=== PATIENT | male | born 1990 | race Caucasian/White ===

== ENCOUNTER 2020-12-01 18:06 | Emergency (ER) | payer MEDICAID ==
[~2020-12-01] VITALS: Ht 175.3 cm; Wt 158.8 kg
[2020-12-01 18:18] VITALS: BP_SYST 141
--- NOTE | 2020-12-01 18:20 | NUR ---
Patient to ER bed 1 to gown for evaluation. Side rails up. Report given to MAU HUGHES.
--- NOTE | 2020-12-01 18:23 | NUR ---
Chris walsh in ED - 12/01/20 at 1938 by ELHAM Pt off to CT with tech on ferny.
--- NOTE | 2020-12-01 18:30 | NUR ---
PT ARRIVES VIA ACLS FOR ALOC AFTER BINGING ON ETOH FOR 7 DAYS. PER THE PT'S FAMILY THE PT HAS BEEN DRINKING BEER AND HARD LIQUOR. PER EMS ON ARRIVAL PT WAS COMBATIVE. HE RECEIVED A DOSE OF VERSED ON ROUTE. IV SITE 18G TO THE LEFT FOOT
--- NOTE | 2020-12-01 18:32 | NUR ---
DANDY Mitchell at bedside examining patient.
--- NOTE | 2020-12-01 18:48 | NUR ---
Lab at bedside.
[2020-12-01] MEDS: NACL 0.9% 1,000 ML IV ONE (18:49)
--- NOTE | 2020-12-01 18:49 | NUR ---
COVID SWAB COLLECTED AND SENT TO LAB
--- NOTE | 2020-12-01 18:50 | NUR ---
X-ray at bedside.
--- NOTE | 2020-12-01 18:55 | NUR ---
Pt off to CT via ferny accompanied by
--- NOTE | 2020-12-01 19:00 | NUR ---
Pt back from CT
[2020-12-01 19:06] LABS: BASOPHILS # (AUTO) 0.1 K/uL (0.0-0.2); BASOPHILS % (AUTO) 1.4 % (0.0-2.0); EOSINOPHILS % (AUTO) 0.1 % (0.0-4.0); HEMATOCRIT 42.9 % (36-54); HEMOGLOBIN 15.1 g/dL (14.0-18.0); LYMPHOCYTES # (AUTO) 2.3 K/uL (1.0-5.5); MEAN CORPUSCULAR HEMOGLOBIN 34 pg (27-31); MEAN CORPUSCULAR HGB CONC 35 % (32-36); MEAN CORPUSCULAR VOLUME 96 fL (79.0-98.0); MONOCYTES # (AUTO) 0.4 K/uL (0.0-1.0); MONOCYTES % (AUTO) 5.5 % (1.7-9.3); NEUTROPHILS # (AUTO) 4.1 K/uL (1.8-7.7); PLATELET COUNT (AUTO) 248 K/uL (130-430); RED BLOOD CELL COUNT(AUTO) 4.48 MIL/uL (4.2-6.2); WHITE BLOOD COUNT (AUTO) 6.9 K/uL (4.8-10.8)
[2020-12-01 19:19] LABS: ANION GAP 11 (5-15); CALCIUM 8.2 mg/dL (8.4-11.0); CHLORIDE 105 mmol/L (98-107); CREATININE 0.89 mg/dL (0.55-1.30); GLUCOSE 121 mg/dL (70-99); POTASSIUM 3.1 mmol/L (3.5-5.1); SODIUM SERUM 143 mmol/L (136-145); UREA NITROGEN, BLOOD 9 mg/dL (8-21)
[2020-12-01 19:20] LABS: GFR AFRICAN AMERICAN 129 mL/min (>90)
[2020-12-01 19:25] LABS: ACETAMINOPHEN < 1 ug/mL (1-30)
[2020-12-01 19:26] LABS: ALANINE AMINOTRANSFERASE 103 U/L (12-78); ALBUMIN 3.5 g/dL (3.4-4.8); ASPARTATE AMINOTRANSFERASE 57 U/L (10-37); TOTAL BILIRUBIN 0.5 mg/dL (0.0-1.0)
--- NOTE | 2020-12-01 19:28 | NUR ---
care endorsed to Sarah HUGHES
--- NOTE | 2020-12-01 19:28 | NUR ---
REPORT RECEIEVED FROM ELLEN LEÓN. PATIENT ARRIVED FROM CT. VSS. DENIES ANY DISTRESS AT THIS TIME. AAOX1. IVF INFUSING WITHOUT ANY DIFFICULTIES AT THIS TIME.
[2020-12-01 19:38] LABS: BILIRUBIN,URINE NEGATIVE (NEGATIVE); BLOOD, URINE NEGATIVE (NEGATIVE); CLARITY/URINE CLEAR (CLEAR); COLOR,URINE YELLOW (YELLOW); GLUCOSE,URINE NEGATIVE (NEGATIVE); KETONES,URINE NEGATIVE (NEGATIVE); LEUKOCYTE ESTERASE ,URINE NEGATIVE (NEGATIVE); NITRITE, URINE NEGATIVE (NEGATIVE); PH,URINE 5.5 (5.0-8.0); PROTEIN URINE NEGATIVE (NEGATIVE); UROBILINOGEN,URINE 0.2 (0.2-1.0)
[2020-12-01 19:44] LABS: ALCOHOL, BLOOD 419 mg/dL (<10)
[2020-12-01 19:50] LABS: BARBITURATE, URINE NEGATIVE (NEG <=200); BENZODIAZEPINE, URINE NEGATIVE (NEG <=150); CANNABINOID, URINE POSITIVE (NEG <=50); COCAINE, URINE NEGATIVE (NEG <=150); METHAMPHETAMINES SCREEN,URINE NEGATIVE (NEG <=500); OPIATE, URINE NEGATIVE (NEG <=100); PHENCYCLIDINE SCREEN,URINE NEGATIVE (NEG <=25); UR TRICYCLIC ANTIDEPRESSANTS NEGATIVE (NEG <=300); URINE AMPHETAMINE NEGATIVE (NEG <=500); URINE METHADONE NEGATIVE (NEG <=200); URINE OXYCODONE SCREEN NEGATIVE (NEG <=100); URINE PROPOXYPHENE SCREEN NEGATIVE (NEG <=300)
--- NOTE | 2020-12-01 20:10 | NUR ---
Patient unsconsciously removed his IV cannula at left foot, dressing applied and no active bleeding. # 20 gauge angiocath placed to LEFT FOREARM. Use of asceptic technique. Opsite placed over site. Blood return noted. Flushed with 10 cc of normal saline. No evidence of infiltration noted. Patient tolerated well.
[2020-12-01] MEDS: LORazepam 2 MG/ML VIAL IVP ONE (20:15)
[2020-12-01] MEDS: KCL 20 mEq in 100 mL (PREMIX) 100 ML IV ONE (20:31)
--- NOTE | 2020-12-01 20:51 | NUR ---
SPOKE TO CANDICE (MOTHER) REGARDING COMING TO [facility] PATIENT. MOTHER STATED SHE WILL ARRIVE BY 10PM TO PICK PT UP.
--- NOTE | 2020-12-01 21:52 | NUR ---
Patient pulled out IV line. notified. Bleeding controlled.
--- NOTE | 2020-12-01 22:09 | NUR ---
SPOKE TO MOTHER (CANDICE) PER MOTHER STATED ABOUT 20/30 MINUTES AWAY FROM ARRIVAL. MOTHER STATED "HE HAS SCHIZOPHRENIA, DEPRESSION, I SPOKE TO A NURSE AND STATED HE NEEDS TO BE ON A 5150 HOLD". UPDATE WAS GIVEN AND EXPRESSED THAT PATIENT WAS MEDICALLY CLEARED FROM MD AND CAN GO HOME AT THIS TIME.
[2020-12-01 22:37] VITALS: BP_SYST 156
--- NOTE | 2020-12-01 22:38 | NUR ---
Patient given written and verbal discharge instructions and verbalizes understanding. DR. RAYNE DORMAN MD discussed with patient the results and treatment provided. Patient in stable condition. ID arm band removed. IV catheter removed intact and dressing applied, no active bleeding. Patient educated on pain management and to follow up with PMD. Pain Scale 0/10. Opportunity for questions provided and answered. Medication side effect fact sheet provided.
== END 2020-12-01 22:38 | disposition home or self-care (01) ==
LOC: SED 18:06
DX: T51.91XA Toxic effect of unspecified alcohol, accidental (unintentional), initial encounter (principal); F10.229 Alcohol dependence with intoxication, unspecified; F12.90 Cannabis use, unspecified, uncomplicated; E87.6 Hypokalemia; Z79.899 Other long term (current) drug therapy; Y90.8 Blood alcohol level of 240 mg/100 ml or more; Y92.89 Other specified places as the place of occurrence of the external cause
CPT/HCPCS: 36415; 70450; 71045; 76376; 80053; 80307; 81003; 85025; 96361; 96374; 99291; G0480; J2060; J3480; J7030; 99285; G0481; G0482